=== PATIENT | female | born 1955 | race African-American/Black ===

== ENCOUNTER 2022-05-21 10:47 | Inpatient (IN) ==
[2022-05-21] MEDS ORDERED: ASPIRIN 325 MG TABLET PO STA (11:14)
[2022-05-21 11:28] LABS: Basophils % 0.4 % (0.0-0.8); Eosinophils % 0.4 % (0.00-10.9); Hematocrit 21.9 VOL% (35.7-47.0); Hemoglobin 6.5 GM/DL (12.0-16.0); Immature Granulocytes % 0.7 %; Immature Granulocytes Absolute 0.06 #; Lymphocytes # 1.2 10*3/uL (1.4-4.0); Lymphocytes % 14.4 % (21.3-54.2); Mean Corpuscular HGB Conc 29.7 GM/DL (32-36); Mean Platelet Volume 10.5 FL (9.6-12.0); Monocytes # 0.5 10*3/uL (0.11-0.8); Monocytes % 6.1 % (1.7-12.7); Platelet Count 328 T/CUMM (130-400); Red Blood Count 2.19 MC/CUMM (3.8-5.5); Red Cell Distribution Width 16.7 % (9.3-17.3); White Blood Count 8.2 T/CUMM (4-12)
[2022-05-21 11:41] LABS: PT Patient Result 10.8 SECS (10.1-12.1)
[2022-05-21 11:49] LABS: Albumin 3.1 G/DL (3.4-5.0); Bilirubin,Total 0.4 MG/DL (0.20-1.00); Calcium 8.3 MG/DL (8.5-10.1); Osmolality,Calculated 296.8 MOS/KG (273-304); Potassium 4.9 MMOL/L (3.5-5.1)
[2022-05-21] MEDS ORDERED: hydrALAZINE 20 MG/1 ML VIAL IV PRN (13:53)
[2022-05-21] MEDS ORDERED: ACETAMINOPHEN 325 MG TABLET PO PRN (13:53)
[2022-05-21] MEDS ORDERED: GLUCAGON 1 MG VIAL IM PRN (13:53)
[2022-05-21] MEDS ORDERED: ONDANSETRON 4 MG/2 ML VIAL IV PRN (13:53)
[2022-05-21] MEDS ORDERED: PNEUMOCOCCAL VACCINE (13 VALENT) 0.5 ML SYRINGE IM ONE (16:56)
[2022-05-21] MEDS: SODIUM BICARBONATE 650 MG TABLET PO SCH (17:45)
[2022-05-21] MEDS: SEVELAMER CARBONATE 800 MG TABLET PO SCH (20:25)
[2022-05-22 05:28] LABS: Calcium 8.5 MG/DL (8.5-10.1); Osmolality,Calculated 295.8 MOS/KG (273-304); Potassium 5.1 MMOL/L (3.5-5.1)
[2022-05-22 06:12] LABS: Basophils % 0.5 % (0.0-0.8); Eosinophils % 0.6 % (0.00-10.9); Hematocrit 19.3 VOL% (35.7-47.0); Immature Granulocytes % 1.1 %; Immature Granulocytes Absolute 0.07 #; Lymphocytes # 1.5 10*3/uL (1.4-4.0); Mean Corpuscular Volume 100.5 FL (87-102); Mean Platelet Volume 10.7 FL (9.6-12.0); Monocytes # 0.5 10*3/uL (0.11-0.8); Monocytes % 7.5 % (1.7-12.7); Neutrophils % 67.3 % (38.7-73.9); Platelet Count 305 T/CUMM (130-400); Red Blood Count 1.92 MC/CUMM (3.8-5.5); Red Cell Distribution Width 16.4 % (9.3-17.3); White Blood Count 6.4 T/CUMM (4-12)
[2022-05-22 06:15] LABS: Hemoglobin 5.6 GM/DL (12.0-16.0)
[2022-05-22] MEDS ORDERED: ceFAZolin 2,000 MG/50 ML DUPLEX IV ONE (06:30)
[2022-05-22] MEDS: SODIUM BICARBONATE 650 MG TABLET PO SCH ×3 (07:23→16:57)
[2022-05-22] MEDS ORDERED: BUPIVACAINE MPF 0.25% 10 ML VIAL ONE (08:21)
[2022-05-22] MEDS ORDERED: LIDOCAINE 1%/EPI INJ 20 ML VIAL ONE (08:21)
[2022-05-22] MEDS ORDERED: HEPARIN 5,000 UNIT/1 ML VIAL ONE (08:21)
[2022-05-22] MEDS ORDERED: SODIUM CHLORIDE 0.9% 1,000 ML IV PRN (08:59)
[2022-05-22] MEDS: amLODIPine 10 MG TABLET PO SCH (09:15)
[2022-05-22] MEDS: FERROUS SULFATE 325 MG TABLET PO SCH (09:15)
[2022-05-22] MEDS: SEVELAMER CARBONATE 800 MG TABLET PO SCH ×3 (09:16→21:56)
[2022-05-22] MEDS: PANTOPRAZOLE 40 MG TABLET PO SCH (09:16)
[2022-05-22 11:42] LABS: Hepatitis B Surface Ag Quant < 0.10 Index; Hepatitis B Surface Ag Result Non-Reactive (NonReactive)
[2022-05-22] MEDS ORDERED: HEPARIN 10,000 UNIT/10 ML VIAL IV PRN (12:10)
[2022-05-23 07:46] LABS: Hematocrit 29.1 VOL% (35.7-47.0)
[2022-05-23] MEDS: FERROUS SULFATE 325 MG TABLET PO SCH (09:13)
[2022-05-23] MEDS: PANTOPRAZOLE 40 MG TABLET PO SCH (09:13)
[2022-05-23] MEDS: SODIUM BICARBONATE 650 MG TABLET PO SCH ×3 (09:13→16:44)
[2022-05-23] MEDS: amLODIPine 10 MG TABLET PO SCH (09:14)
[2022-05-23] MEDS: SEVELAMER CARBONATE 800 MG TABLET PO SCH ×3 (09:14→22:22)
[2022-05-24 05:55] LABS: Basophils % 0.5 % (0.0-0.8); Eosinophils # 0.1 10*3/uL (0.0-0.87); Eosinophils % 1.2 % (0.00-10.9); Hematocrit 25.4 VOL% (35.7-47.0); Immature Granulocytes % 0.8 %; Immature Granulocytes Absolute 0.06 #; Lymphocytes # 1.9 10*3/uL (1.4-4.0); Lymphocytes % 24.3 % (21.3-54.2); Mean Corpuscular HGB Conc 31.5 GM/DL (32-36); Mean Corpuscular Volume 94.4 FL (87-102); Mean Platelet Volume 10.8 FL (9.6-12.0); Monocytes # 0.8 10*3/uL (0.11-0.8); Monocytes % 9.9 % (1.7-12.7); Neutrophils % 63.3 % (38.7-73.9); Platelet Count 255 T/CUMM (130-400); Red Blood Count 2.69 MC/CUMM (3.8-5.5); Red Cell Distribution Width 16.7 % (9.3-17.3); White Blood Count 7.7 T/CUMM (4-12)
[2022-05-24 06:13] LABS: Calcium 8.3 MG/DL (8.5-10.1); Potassium 4.1 MMOL/L (3.5-5.1)
[2022-05-24] MEDS: FERROUS SULFATE 325 MG TABLET PO SCH (08:43)
[2022-05-24] MEDS: SODIUM BICARBONATE 650 MG TABLET PO SCH ×3 (08:43→17:20)
[2022-05-24] MEDS: PANTOPRAZOLE 40 MG TABLET PO SCH (08:43)
[2022-05-24] MEDS: SEVELAMER CARBONATE 800 MG TABLET PO SCH ×3 (08:43→20:31)
[2022-05-24] MEDS: amLODIPine 10 MG TABLET PO SCH (08:43)
[2022-05-24] MEDS: LINEZOLID 600 MG TABLET PO SCH (20:32)
[2022-05-25 05:28] LABS: Basophils % 0.3 % (0.0-0.8); Eosinophils # 0.1 10*3/uL (0.0-0.87); Eosinophils % 1.1 % (0.00-10.9); Hemoglobin 8.8 GM/DL (12.0-16.0); Immature Granulocytes % 0.4 %; Immature Granulocytes Absolute 0.04 #; Lymphocytes # 2.9 10*3/uL (1.4-4.0); Lymphocytes % 27.4 % (21.3-54.2); Mean Corpuscular HGB Conc 30.3 GM/DL (32-36); Mean Corpuscular Volume 97.3 FL (87-102); Mean Platelet Volume 9.8 FL (9.6-12.0); Monocytes % 9.8 % (1.7-12.7); Platelet Count 260 T/CUMM (130-400); Red Blood Count 2.98 MC/CUMM (3.8-5.5); Red Cell Distribution Width 16.2 % (9.3-17.3); White Blood Count 10.4 T/CUMM (4-12)
[2022-05-25 05:45] LABS: Calcium 8.8 MG/DL (8.5-10.1); Osmolality,Calculated 285.3 MOS/KG (273-304); Potassium 3.8 MMOL/L (3.5-5.1)
[2022-05-25] MEDS: SODIUM BICARBONATE 650 MG TABLET PO SCH ×3 (09:00→16:39)
[2022-05-25] MEDS: PANTOPRAZOLE 40 MG TABLET PO SCH (13:17)
[2022-05-25] MEDS: FERROUS SULFATE 325 MG TABLET PO SCH (13:17)
[2022-05-25] MEDS: SEVELAMER CARBONATE 800 MG TABLET PO SCH ×3 (13:17→16:40)
[2022-05-25] MEDS: amLODIPine 10 MG TABLET PO SCH (13:17)
[2022-05-25] MEDS: LINEZOLID 600 MG TABLET PO SCH ×2 (13:17→20:48)
[2022-05-26 06:02] LABS: Basophils % 0.5 % (0.0-0.8); Eosinophils # 0.1 10*3/uL (0.0-0.87); Eosinophils % 1.3 % (0.00-10.9); Hematocrit 24.6 VOL% (35.7-47.0); Hemoglobin 7.7 GM/DL (12.0-16.0); Immature Granulocytes % 0.4 %; Immature Granulocytes Absolute 0.03 #; Lymphocytes # 1.9 10*3/uL (1.4-4.0); Lymphocytes % 24.8 % (21.3-54.2); Mean Corpuscular HGB Conc 31.3 GM/DL (32-36); Mean Corpuscular Volume 94.3 FL (87-102); Mean Platelet Volume 10.9 FL (9.6-12.0); Monocytes # 0.8 10*3/uL (0.11-0.8); Monocytes % 10.9 % (1.7-12.7); Neutrophils % 62.1 % (38.7-73.9); Platelet Count 252 T/CUMM (130-400); Red Blood Count 2.61 MC/CUMM (3.8-5.5); Red Cell Distribution Width 15.6 % (9.3-17.3); White Blood Count 7.5 T/CUMM (4-12)
[2022-05-26 06:18] LABS: Calcium 8.4 MG/DL (8.5-10.1); Osmolality,Calculated 283.1 MOS/KG (273-304); Potassium 3.4 MMOL/L (3.5-5.1)
[2022-05-26] MEDS: FERROUS SULFATE 325 MG TABLET PO SCH (10:01)
[2022-05-26] MEDS: PANTOPRAZOLE 40 MG TABLET PO SCH (10:03)
[2022-05-26] MEDS: amLODIPine 10 MG TABLET PO SCH (10:04)
[2022-05-26] MEDS: SEVELAMER CARBONATE 800 MG TABLET PO SCH ×2 (10:06→11:47)
[2022-05-26] MEDS: LINEZOLID 600 MG TABLET PO SCH (10:07)
[2022-05-26] MEDS: SODIUM BICARBONATE 650 MG TABLET PO SCH ×2 (10:30→11:47)
[2022-05-26 15:38] VITALS: BP 111/50
[2022-05-31] MEDS ORDERED: ERGOCALCIFEROL 50,000 UNIT CAPSULE PO SCH (09:00)
== END 2022-05-26 15:15 | disposition home or self-care (01) | DRG 291 ==
LOC: EDUNIT# → EDBD → N.ED 10:47 → N.EDINP 13:53 → SUATTDRO 13:53 → N.EDINP 16:00 → N.5E 16:23
PROVIDERS: ADMIT Internal Medicine; ATTEND Hospitalist